=== PATIENT | male | born 1990 | race Caucasian/White ===

== ENCOUNTER 2023-11-25 22:04 | Emergency (ER) | payer SELFPAY ==
--- NOTE | 2023-11-25 22:00 | RT.EKG_ITS ---
APPROVED REPORT Exam: Resting ECG Reason for Exam: SOB Patient Location: E HR:90 bpm ECG Measurements Heart Rate 90 AXIS WV 127 P 22 QRSd 104 QRS 48 QT 357 T -7 QTc 438 Conclusion Sinus rhythm...normal P axis, V-rate 60- 99 Probable left atrial enlargement...P >50mS, <-0.10mV V1 no ST segment or T wave anbnormalities to suggest occlusive [place]
[2023-11-25 22:01] VITALS: BP 170/105; PULSE 93; RESP 18; TEMP 36.5; O2SAT 97
[2023-11-25 22:04] VITALS: RESP 18
[2023-11-25 22:16] LABS: Abs Immature Grans 0.04 10^3/uL (0.0-0.06); Absolute Basophil Count 0.03 10^3/uL (0.0-0.2); Absolute Eosinophil Count 0.07 10^3/uL (0.0-0.7); Absolute Lymphocyte Count 1.57 10^3/uL (1.2-3.4); Absolute Monocyte Count 0.61 10^3/uL (0.1-0.8); Absolute Neutrophil Count 3.78 10^3/uL (1.2-6.7); Basophils % 0.5; Eosinophils % 1.1; HCT 40.3 % (40.0-50.0); HGB 13.9 g/dL (13.5-17.5); Immature Grans % 0.7; Lymphocytes % 25.7; MCHC 34.5 % (32.0-36.0); MCV 90 fL (80-95); MPV 9.6 fL (8.0-11.0); Platelet Count 178 10^3/uL (130-400); RBC 4.48 10^6/uL (4.36-5.78); RDW 12.4 % (11.8-14.1); RDW-SD 41.1 fL
--- NOTE | 2023-11-25 22:30 | DI.RAD_ITS ---
Exam(s) XR CHEST 2V PA LATERAL EXAM: XR CHEST 2V PA LATERAL CLINICAL HISTORY: chest pain. TECHNIQUE: 2D digital imaging was performed. COMPARISON: No exams were available for comparison FINDINGS: 2 views: Heart size is normal. The mediastinum is not widened. Lungs are clear. No infiltrates nor pleural effusions. IMPRESSION: No acute pulmonary findings. DATA REPOSITORY: RADIATION DOSE DELIVERED:
[2023-11-25 22:41] LABS: ALT 122 U/L (16-63); AST 53 U/L (15-37); Albumin 3.9 g/dL (3.4-5.0); Alkaline Phosphatase 48 U/L (46-116); Anion Gap 8.6 mmol/L (3-11); BUN 9 mg/dL (7-18); Bilirubin, Total 0.4 mg/dL (0.2-1.0); CO2 26.4 mmol/L (21.0-32.0); CREATININE 0.9 mg/dL (0.70-1.30); Calcium 8.7 mg/dL (8.5-10.1); Chloride 100 mmol/L (98-107); Estimated GFR 115.65 (mL/min/1.73m2); Glucose 121 mg/dL (74-106); Magnesium 1.6 mg/dL (1.8-2.4); Potassium 3.8 mmol/L (3.5-5.1); Sodium 135 mmol/L (136-145); TSH 1.59 uIU/mL (0.36-3.74); Total Protein 7.6 g/dL (6.4-8.2); Troponin I < 50 ng/L (< or =60)
[2023-11-25 22:59] LABS: Bilirubin Negative (Negative); Blood Negative (Negative); Clarity Clear (Clear); Glucose Negative (Negative); Ketones Negative (Negative); Leukocyte Esterase Negative (Negative); Nitrite Negative (Negative); Urobilinogen 0.2 mg/dL (Up to 0.2); pH 5.5 (5-8)
--- NOTE | 2023-11-25 23:08 | W.ED.GENAD ---
HPI General Stated Complaint: Dizzy/Sync Mode of arrival: EMS. KHADAR: 3 Date/Time Provider Initiated Documentation: 11/25/23 22:10. Limitations to Documentation: no limitations. Information obtained by: patient and EMS. HPI Narrative: 33yo previously healthy male, hx heavy ETOH use, presenting for lightheadedness and weakness. Was siting playing video games when he began to feel lightheaded and like he might pass out, diffuse weakness seemed to be worse in his bilateral arms. Has never experienced similar symptoms before. No shortness of breath. Does have mild dull substernal nonradiating chest pain on and off for years, including currently, present over the past 6 hours which he attributes to reflux. Reports cold symptoms for the past week, cough, rhinorhea. No fevers, chills, rash, nausea, vomiting, diarrhea, or abdominal pain. Minimal PO intake today, a few vegetables and some sips of beer. DId drink a lot of beer yesterday and the day before. History of ETOH withdrawal shakes, no seizures/DT's/inpatient treatment. He is otherwise in his usual state of health. Related Data Home Medications Medication Instructions Recorded Confirmed Unknown [No Known Home Meds] 10/19/15 05/06/17 Allergies Allergy/AdvReac Type Severity Reaction Status Date / Time No Known Allergies Allergy Unverified 05/06/17 15:44 Review of Systems Narrative: see HPI PFSH All Active Problems (Updated 11/25/23 @ 23:49 by Stephanie Joseph MD) Lightheadedness (Acute) Social History Smoking/Tobacco Use Status: Current every day Smoking risk assessment performed?: Yes Alcohol Intake: current Alcohol Intake frequency: 3 or more drinks per day Drug use: Daily Substance use type: marijuana Do you feel safe at home: Yes Do you feel safe in your relationship?: Yes PAWSS Have you Been Recently Intoxicated or Drunk Within the Last 30 days?: Yes Have you Ever Experienced Previous Episodes of Alcohol Withdrawal?: Yes Have you ever Experienced Withdrawal Seizures?: No Have you ever Experienced Delirium Tremens(DT)s?: Yes Have you ever undergone Alcohol Rehabilitation Treatment (i.e, inpt ot outpatient treatment programs)?: No Have you ever Experienced Blackouts?: No Have you ever Combined Alcohol with other Downers within the last 90 days?: No Have you ever Combined Alcohol with any other Substance of Abuse during the last 90 days?: Yes Positive Blood Alcohol level on Presentation? [PCS.BAL]: Unable to Obtain Evidence of Increased Autonomic Activity (i.e. HR>120, tremor, sweating, agitation, nausea)?: No Result: 5 Exam Narrative Exam Narrative: General: Alert, well appearing, well nourished, in no acute distress. Head: Normocephalic, atraumatic Neck: Trachea midline, ?Neck supple. ENT: ?MMM.? Cardiac: ?RRR, no murmurs appreciated Resp: No respiratory distress. CTAB. Abd: ?Soft, non-distended, nontender : ?No suprapubic tenderness. No CVA tenderness. Extremities: ?No deformities.? No peripheral edema. Neuro: ? GCS 15.? PERRL.? EOMI.? Fluent speech, no dysarthria. Motor- 5/5 strength symmetric bilateral upper and lower extremities including shoulder abductors/adductors, elbow flexors/extensors, wrist flexors/extensors, finger abductors/adductors, hipflexors/extensors, knee flexors/extensors, ankle dorsiflexors and planter flexors. Sensation- ?Intact to light touch and symmetric multiple dermatomes including upper and lower extremities Coordination- No dysmetria on finger to nose Gait/station: ?Normal stance.? No truncal ataxia. Steady gait with equal normal steps CRANIAL NERVES: II: Pupils equal and reactive, III, IV, : EOM intact, no gaze preference or deviation, no nystagmus. V: normal sensation in V1, V2, and V3 segments bilaterally VII: no asymmetry, no nasolabial fold flattening VIII: normal hearing to speech IX, X: normal palatal elevation, no uvular deviation XI: 5/5 head turn and 5/5 shoulder shrug bilaterally XII: midline tongue protrusion Course Vital Signs Vital signs: Vital Signs Temperature 36.5 C 11/25/23 22:01 Pulse 93 H 11/25/23 22:01 Respiratory Rate 18 11/25/23 22:01 Blood Pressure 170/105 H 11/25/23 22:01 Pulse Oximetry 97 11/25/23 22:01 Temperature 36.5 C 11/25/23 22:01 Pulse 93 H 11/25/23 22:01 Respiratory Rate 18 11/25/23 22:04 Respiratory Effort Normal 11/25/23 22:04 Respiratory Depth Normal 11/25/23 22:04 Respiratory Pattern Normal 11/25/23 22:04 Blood Pressure 170/105 H 11/25/23 22:01 Blood Pressure Position Supine 11/25/23 22:01 Pulse Oximetry 97 11/25/23 22:01 Pain Level 1 11/25/23 22:01 Lab/Test Results Lab/Test Results: Laboratory Tests Range/Units 11/25/23 11/25/23 22:11 22:47 WBC (4.4-10.8) 10^3/uL 6.10 RBC (4.36-5.78) 10^6/uL 4.48 Hgb (13.5-17.5) g/dL 13.9 Hct (40.0-50.0) % 40.3 MCV (80-95) fL 90 MCH (27.0-33.0) pg 31.0 MCHC (32.0-36.0) % 34.5 RDW (11.8-14.1) % 12.4 Plt Count (130-400) 10^3/uL 178 MPV (8.0-11.0) fL 9.6 Immature Gran % 0.7 Neutrophils % 62.0 Lymphocytes % 25.7 Monocytes % 10.0 Eosinophils % 1.1 Basophils % 0.5 Nucleated RBC % (0.0-0.3) % 0.0 Absolute Neutrophils (1.2-6.7) 10^3/uL 3.78 Absolute Lymphocytes (1.2-3.4) 10^3/uL 1.57 Absolute Monocytes (0.1-0.8) 10^3/uL 0.61 Absolute Eosinophils (0.0-0.7) 10^3/uL 0.07 Absolute Basophils (0.0-0.2) 10^3/uL 0.03 Sodium (136-145) mmol/L 135 L Potassium (3.5-5.1) mmol/L 3.8 Chloride (98-107) mmol/L 100 Carbon Dioxide (21.0-32.0) mmol/L 26.4 Anion Gap (3-11) mmol/L 8.6 BUN (7-18) mg/dL 9 Creatinine (0.70-1.30) mg/dL 0.9 Est GFR (CKD-EPI 2021) (mL/min/1.73m2) 115.65 Glucose (74-106) mg/dL 121 H Calcium (8.5-10.1) mg/dL 8.7 Magnesium (1.8-2.4) mg/dL 1.6 L Total Bilirubin (0.2-1.0) mg/dL 0.4 AST (15-37) U/L 53 H ALT (16-63) U/L 122 H Alkaline Phosphatase (46-116) U/L 48 Troponin I (< or =60) ng/L < 50 Total Protein (6.4-8.2) g/dL 7.6 Albumin (3.4-5.0) g/dL 3.9 TSH (0.36-3.74) uIU/mL 1.59 Urine Color (Yellow) Yellow Urine Clarity (Clear) Clear Urine pH (5-8) 5.5 Ur Specific [place] (1.005-1.025) 1.020 Urine Protein (Negative) mg/dL Negative Urine Ketones (Negative) mg/dL Negative Urine Blood (Negative) Negative Urine Nitrite (Negative) Negative Urine Bilirubin (Negative) Negative Urine Urobilinogen (Up to 0.2) mg/dL 0.2 Ur Leukocyte Esterase (Negative) Negative Urine Glucose (Negative) mg/dL Negative Medical Decision Making 33yo previously healthy male, hx heavy ETOH use, presenting for lightheadedness and weakness. History from patient and EMS. Was siting playing video games when he began to feel lightheaded and like he might pass out, diffuse weakness seemed to be worse in his bilateral arms. No SOB; does have mild dull substernal nonradiating chest pain on and off for years, including currently, present over the past 6 hours which he attributes to reflux. Minimal PO intake today, a few vegetables and some sips of beer. Did drink a lot of beer yesterday and the day before. Hypertensive on arrival, vital signs otherwise reassuring. Normal physical and neurological exam. Symptoms are not vertiginous. Would not pursue CVA with CT imaging. Not consitent with neuromusclar disease. Not septic. Low supscion for acute cardiac event; will eval with EKG, CXR, labs. EKG NSR, appropriate intervals, no ST segment or T wave abnormalities to suggest occlusive [place]. CXR independently reviewed; no focal pneumonia or pneumonia on my view; agree with radiology read below. Labs reviewed as below, CBC reassuring, CMP with mildlely elevated ALP and AST, no significant electrolyte abnormalities, TSH normal, troponin normal in the setting of 6 hours of constant atypical chest pain; would not further pursue ACS. UA not infected. Reassuring orthostatic vital signs. CIWA 2. Ambulates steadily in the department. Unclear etiology of symptoms however with reassuring workup here appropriate for PCP followup. Advised to followup closely with his primary care doctor. Discharged home; discharge instructions and return precautions were reviewed with patient who verbalized understanding. All questions were answered and he s in full agreement with the plan. Imaging Data Radiologic Study: Imaging: X-Ray Radiologist's impression: IMPRESSION: No acute thoracic process. Lab Data Lab results reviewed: Yes I reviewed the patient's lab results. Labs: Laboratory Tests Range/Units 11/25/23 11/25/23 22:11 22:47 WBC (4.4-10.8) 10^3/uL 6.10 RBC (4.36-5.78) 10^6/uL 4.48 Hgb (13.5-17.5) g/dL 13.9 Hct (40.0-50.0) % 40.3 MCV (80-95) fL 90 MCH (27.0-33.0) pg 31.0 MCHC (32.0-36.0) % 34.5 RDW (11.8-14.1) % 12.4 Plt Count (130-400) 10^3/uL 178 MPV (8.0-11.0) fL 9.6 Immature Gran % 0.7 Neutrophils % 62.0 Lymphocytes % 25.7 Monocytes % 10.0 Eosinophils % 1.1 Basophils % 0.5 Nucleated RBC % (0.0-0.3) % 0.0 Absolute Neutrophils (1.2-6.7) 10^3/uL 3.78 Absolute Lymphocytes (1.2-3.4) 10^3/uL 1.57 Absolute Monocytes (0.1-0.8) 10^3/uL 0.61 Absolute Eosinophils (0.0-0.7) 10^3/uL 0.07 Absolute Basophils (0.0-0.2) 10^3/uL 0.03 Sodium (136-145) mmol/L 135 L Potassium (3.5-5.1) mmol/L 3.8 Chloride (98-107) mmol/L 100 Carbon Dioxide (21.0-32.0) mmol/L 26.4 Anion Gap (3-11) mmol/L 8.6 BUN (7-18) mg/dL 9 Creatinine (0.70-1.30) mg/dL 0.9 Est GFR (CKD-EPI 2020) (mL/min/1.73m2) 115.65 Glucose (74-106) mg/dL 121 H Calcium (8.5-10.1) mg/dL 8.7 Magnesium (1.8-2.4) mg/dL 1.6 L Total Bilirubin (0.2-1.0) mg/dL 0.4 AST (15-37) U/L 53 H ALT (16-63) U/L 122 H Alkaline Phosphatase (46-116) U/L 48 Troponin I (< or =60) ng/L < 50 Total Protein (6.4-8.2) g/dL 7.6 Albumin (3.4-5.0) g/dL 3.9 TSH (0.36-3.74) uIU/mL 1.59 Urine Color (Yellow) Yellow Urine Clarity (Clear) Clear Urine pH (5-8) 5.5 Ur Specific [place] (1.005-1.025) 1.020 Urine Protein (Negative) mg/dL Negative Urine Ketones (Negative) mg/dL Negative Urine Blood (Negative) Negative Urine Nitrite (Negative) Negative Urine Bilirubin (Negative) Negative Urine Urobilinogen (Up to 0.2) mg/dL 0.2 Ur Leukocyte Esterase (Negative) Negative Urine Glucose (Negative) mg/dL Negative Quality:SDOH Health Related Social Needs: No Data to Display Discharge Plan Disposition Patient Disposition: Home Condition: Good Discharge Details Clinical Impression: Lightheadedness Primary Care Provider: None,None ED Provider: Stephanie Joseph Home Meds and New Rx's Prescriptions: No Action No Known Home Meds Discharge Instructions Instructions: Lightheadedness (ED) Additional Instructions: Drink plenty fluids and make sure you eat something when you get home. Call your primary care doctor today to schedule an appointment within the next 48 hours to followup on your visit here. Return to the emergency department for new or worsening symptoms including new/different/worse chest pain, difficulty breathing, numbness or weakness in part of your body, or if you have any other concerns.
[2023-11-25] MEDS: Normal Saline 1,000 ML 1000 ML IV (23:14)
[2023-11-25 23:17] VITALS: BP 146/89; BP 150/101; BP 150/99; PULSE 83; PULSE 86; PULSE 88
--- NOTE | 2023-11-25 23:35 | DI.VRAD_ITS ---
PROCEDURE INFORMATION: Exam: XR Chest Exam date and time: 11/25/2023 11:02 PM Age: 33 years old Clinical indication: Chest wall pain TECHNIQUE: Imaging protocol: Radiologic exam of the chest. Views: 2 views. COMPARISON: No relevant prior studies available. FINDINGS: Lungs: Normal pulmonary expansion. Pulmonary vasculature grossly normal. No gross pulmonary infiltrates or edema pattern. Pleural spaces: No pleural effusion. No pneumothorax. Heart/Mediastinum: Heart size normal. No tracheal/mediastinal shift. Bones/joints: No acute osseous abnormalities are identified. IMPRESSION: No acute thoracic process. Dictated and Authenticated by: Nando Nair MD. Ordering:DAYRON Brown MD
[2023-11-26 00:04] VITALS: BP 147/97; PULSE 89; RESP 18; O2SAT 97
--- NOTE | 2023-11-26 00:06 | NUR.NOTE ---
PT ambulated in hallway PT states that he is still having dizziness. Nursing Note:
--- NOTE | 2023-11-26 03:33 | NUR.NOTE ---
Pt placed on care management list for referral to PCP to set up primary care due to pt not having PCP. Pt has not provided any telephone number to be reached
== END 2023-11-26 00:41 | disposition home or self-care (01) ==
PROVIDERS: Emergency Provider Student in an Organized Health Care Education/Training Program
DX: R42 Dizziness and giddiness (principal); R53.1 Weakness; F17.210 Nicotine dependence, cigarettes, uncomplicated
CPT/HCPCS: 80053; 93005; 96360; 99283; 71046; 81003; 83735; 84443; 84484; 85025; 93010

== ENCOUNTER 2023-12-01 01:23 | Emergency (ER) | payer SELFPAY ==
[2023-12-01] VITALS (11 sets, daily range): BP systolic 143–161; BP diastolic 96–107; PULSE 66–80; RESP 11–18; TEMP 36.6; O2SAT 96–98
--- NOTE | 2023-12-01 01:15 | RT.EKG_ITS ---
APPROVED REPORT Exam: Resting ECG Reason for Exam: chest pain Patient Location: E HR:70 bpm ECG Measurements Heart Rate [address] 132 P 24 QRSd 105 QRS 59 QT 376 T 11 QTc 406 Conclusion Sinus rhythm...normal P axis, V-rate 60- 99 Physician: no stemi, unchanged from prior ekg.intervals normal. no epsilon or delta wave.
--- NOTE | 2023-12-01 01:30 | DI.CT_ITS ---
Exam(s) CT THORAX CTA EXAM: CT THORAX CTA CLINICAL HISTORY: chest and left arm pain, r/o dissection. TECHNIQUE: Imaging Protocol: CT angiography of the chest was performed using pulmonary embolus marlene col. Multi planar reconstructions were performed. CONTRAST MATERIAL: Intravenous: Omnipaque 350 Contrast volume: 100 cc COMPARISON: CT CT BRAIN NECK CTA from 12/01/2023 FINDINGS: CHEST: PULMONARY ARTERIES: There are no intraluminal filling defects to suggest acute pulmonary emboli. LUNGS: There are no infiltrates nor evidence of pulmonary infarction.. There are no pleural effusions . MEDIASTINUM: There is no hilar nor mediastinal adenopathy. Visualized thyroid unremarkable. CARDIAC: Heart size is upper normal. There is no pericardial effusion.Caliber of the thoracic aorta is within normal limits. There is no evidence of dissection. There is no significant shift of the in terventricular septum. PARTIALLY VISUALIZED UPPERMOST ABDOMEN: Hepatic steatosis. No splenomegaly. No adrenal masses. Ovi al arteries unremarkable. OSSEOUS: No significant osseous lesions.No fractures.. IMPRESSION: 1. No evidence of acute pulmonary emboli. No evidence of pulmonary infarction.No pleural effusions. No evidence of right heart strain. 2. No evidence of aortic dissection nor pericardial effusion 3. No acute pulmonary findings. RADIATION DOSE DELIVERED: 560.98mGy.cm Total DLP DATA REPOSITORY: All CT scans at this facility are submitted to the National Radiology Data Registry (NRDR) Dose Index Registry (DIR) with the [employer] (A[employer]). RADIATION OPTIMIZATION: All CT scans at this facility use at least one of these dose optimization te chniques: automated exposure control; mA and/or kV adjustment per patient size (includes targeted exa ms where dose is matched to clinical indication); or iterative reconstruction.
--- NOTE | 2023-12-01 01:30 | DI.CT_ITS ---
Exam(s) CT BRAIN NECK CTA EXAM: CT BRAIN NECK CTA CLINICAL HISTORY: headache, lightheaded, cocaine use. TECHNIQUE: Imaging Protocol: Axial CT angiography was performed with multi-slice acquisition and mu lti-planar and/or 3D reconstructions. CONTRAST MATERIAL: Intravenous: Omnipaque 350 Contrast volume:structured data in ml COMPARISON: No exams were available for comparison FINDINGS: CTA Neck W: Aortic arch anatomy: The aortic arch anatomy is conventional and there is no significant stenosis at the origin of the great vessels off of the aortic arch. No intimal flap evident. Anterior circulation: Both common carotid arteries ascend with normal luminal diameters. At the level the carotid bulbs and proximal internal carotid arteries there is no significant plaque and no significant stenosis evident. Internal carotid arteries are demonstrated to be patent in the upper neck. Posterior circulation: Both vertebral arteries originate in conventional fashion off of the subclavian arteries and there is no obvious stenosis at the origin of the vertebral arteries. Both vertebral arteries exhibit normal luminal diameters within the foramen transversarium. The left vertebral artery is dominant. Both vertebral arteries contribute to the formation of the basilar artery at the skull base. CTA Brain W: Anterior circulation: Both internal carotid arteries are patent in the skull base-carotid canals as well as within the cave rnous sinuses. The supraclinoid aspects of the ICAs are patent. Both A1 segments are patent as are the anterior cer ebral arteries and there is no evidence of aneurysm at the level of the anterior communicating artery . Both middle cerebral arteries are patent with no evidence of significant stenosis nor intraluminal th rombus. There also no aneurysms of these vessels. Posterior circulation: The basilar artery ascends in the midline. Distally it gives off patent bilateral superior cerebella r arteries. Above this level the basilar artery terminates as patent bilateral posterior cerebral arteries. There is no evidence of aneurysm at the tip of the basilar artery nor elsewhere in the [id number] is. CT BRAIN: There is no evidence of intracranial hemorrhage, mass effect, or shift of midline structures. There are no extra-axial fluid collections. Ventricles are not enlarged or shifted. There are no ring enh ancing lesions in the brain and no abnormal meningeal enhancement. IMPRESSION: 1. Patent carotid arteries in the neck. No hemodynamically significant stenosis. 2. Patent vertebral arteries. 3. Patent intracranial arteries. 4. No evidence of intracranial hemorrhage. RADIATION DOSE DELIVERED: 1,954.18mGy.cm Total DLP DATA REPOSITORY: All CT scans at this facility are submitted to the National Radiology Data Registry (NRDR) Dose Index Registry (DIR) with the [employer] (ACR). RADIATION OPTIMIZATION: All CT scans at this facility use at least one of these dose optimization te chniques: automated exposure control; mA and/or kV adjustment per patient size (includes targeted exa ms where dose is matched to clinical indication); or iterative reconstruction.
[2023-12-01] MEDS: Normal Saline 1,000 ML 1000 ML IV (01:48)
[2023-12-01 01:53] LABS: Abs Immature Grans 0.04 10^3/uL (0.0-0.06); Absolute Basophil Count 0.04 10^3/uL (0.0-0.2); Absolute Eosinophil Count 0.12 10^3/uL (0.0-0.7); Absolute Lymphocyte Count 3.17 10^3/uL (1.2-3.4); Absolute Monocyte Count 0.89 10^3/uL (0.1-0.8); Absolute Neutrophil Count 6.83 10^3/uL (1.2-6.7); Basophils % 0.4; Eosinophils % 1.1; HCT 41.7 % (40.0-50.0); HGB 14.5 g/dL (13.5-17.5); Immature Grans % 0.4; Lymphocytes % 28.6; MCH 30.6 pg (27.0-33.0); MCHC 34.8 % (32.0-36.0); MCV 88 fL (80-95); MPV 10.4 fL (8.0-11.0); Neutrophils % 61.5; Platelet Count 271 10^3/uL (130-400); RBC 4.74 10^6/uL (4.36-5.78); RDW 11.9 % (11.8-14.1); RDW-SD 38.4 fL
[2023-12-01] MEDS: Omnipaque 350 MG/ML 100 ML BTL IJ ×2 (02:05→02:06)
[2023-12-01 02:06] LABS: PTT Activated 26.4 sec (23.6-32.8)
[2023-12-01] MEDS: Normal Saline Flush 10 ML SYR IVP (02:06)
[2023-12-01] MEDS: Normal Saline - Diluent 50 ML VIAL IJ ×2 (02:06→02:07)
[2023-12-01 02:15] LABS: NT-proBNP 65 pg/mL (<300)
[2023-12-01 02:18] LABS: ALT 152 U/L (16-63); AST 67 U/L (15-37); Albumin 4.1 g/dL (3.4-5.0); Alkaline Phosphatase 50 U/L (46-116); Anion Gap 9.9 mmol/L (3-11); BUN 13 mg/dL (7-18); Bilirubin, Total 0.5 mg/dL (0.2-1.0); CO2 27.1 mmol/L (21.0-32.0); Calcium 9.1 mg/dL (8.5-10.1); Chloride 100 mmol/L (98-107); Estimated GFR 101.92 (mL/min/1.73m2); Glucose 100 mg/dL (74-106); Potassium 3.6 mmol/L (3.5-5.1); Sodium 137 mmol/L (136-145); TSH (W/Ref FT4) 2.23 uIU/mL (0.36-3.74); Total Protein 7.8 g/dL (6.4-8.2); Troponin I < 50 ng/L (< or =60)
[2023-12-01 02:19] LABS: ETHANOL BLOOD < 3.0 mg/dL (<10)
--- NOTE | 2023-12-01 02:58 | ED.GENADUL_ITS ---
HPI General Stated Complaint: Dizzy/Sync KHADAR: 4 Date/Time Provider Initiated Documentation: 12/01/23 01:23. HPI Narrative: 33-year-old male with a past medical history of anxiety presents today for evaluation of lightheadedness chest pain, dizziness, and arm numbness and tingling. Patient was here 5 days ago, at that time he had similar symptoms that occurred while playing video games late at night. Chest x-ray was unremarkable. Workup was benign. No signs of significant abnormality. Symptoms resolved, however again tonight while the patient was playing [employer] on PC he again developed a return of his symptoms. He admits to lightheadedness, left arm tingling and mild dizziness and mild chest pressure for the last 2 to 3 hours. Patient does regularly drink alcohol, but denies any alcohol today. Patient did utilize cocaine a few days ago, but not tonight. No other complaints at this time. He denies any family history of sudden , cardiac disease or other significant pertinent family history. Related Data Home Medications Medication Instructions Recorded Confirmed Unknown [No Known Home Meds] 10/19/15 05/06/17 Allergies Allergy/AdvReac Type Severity Reaction Status Date / Time No Known Allergies Allergy Unverified 05/06/17 15:44 Review of Systems All systems reviewed & are unremarkable except as noted in HPI and below PFSH All Active Problems (Updated 12/01/23 @ 03:44 by Jeremiah Xie DO) Chest discomfort (Acute) Tingling of left upper extremity (Acute) Lightheadedness (Acute) Social History Smoking/Tobacco Use Status: Current every day Tobacco Type: cigarettes Smoking risk assessment performed?: Yes Alcohol Intake: current Alcohol Intake frequency: 3 or more drinks per day Drug use: Daily Substance use type: marijuana and crack/cocaine Housing: house Do you feel safe at home: Yes Do you feel safe in your relationship?: Yes PAWSS Have you Been Recently Intoxicated or Drunk Within the Last 30 days?: Yes Have you Ever Experienced Previous Episodes of Alcohol Withdrawal?: Yes Have you ever Experienced Withdrawal Seizures?: No Have you ever Experienced Delirium Tremens(DT)s?: Yes Have you ever undergone Alcohol Rehabilitation Treatment (i.e, inpt ot outpatient treatment programs)?: No Have you ever Experienced Blackouts?: Yes Have you ever Combined Alcohol with other Downers within the last 90 days?: No Have you ever Combined Alcohol with any other Substance of Abuse during the last 90 days?: Yes Evidence of Increased Autonomic Activity (i.e. HR>120, tremor, sweating, agitation, nausea)?: No Result: 6 Exam Narrative Exam Narrative: 1.Const: Well-nourished, Well-developed, appearing stated age 2.Eyes: PERRL, no conjunctival injection, and symmetrical lids. 3.ENT: Atraumatic external nose and ears. Moist MM. Neck: Symmetric, trachea midline, No thyromegaly. 4.CVS: +S1/S2, No murmurs or gallops. Peripheral pulses 2+ and equal in all extremities. Brisk capillary refill in all extremities. 5.RESP: Unlabored respiratory effort. Clear to auscultation bilaterally. No wheezes rales or rhonchi 6.GI: Soft, Nontender/Nondistended, No hepatosplenomegaly. No guarding or rebound. 7.MSK: Normocephalic/Atraumatic, Extremities w/o deformity or ttp No cyanosis or clubbing, Normal movement of all extremities 8.Skin: Warm, Dry. No rashes or lesions. 9.Neuro: entertainment dancer II-XII grossly intact. Sensation grossly intact, no focal neurologic deficits. All 6 cardinal planes of vision are fully intact. No evidence of rotatory or vertical nystagmus. The patient demonstrated a normal lowptp-bekz-qzaphu, good dexterity. There was no evidence of dysdiadochokinesia. Patient was able to ambulate without difficulty. There was no wide-based gait. Romberg testing was normal. Qjbr-cd-vskm testing was normal. Sensation was intact bilaterally as well as muscle strength bilaterally for all extremities. Patient was able to verbalize butter cup with no slurring, or miss pronunciation. 10.Psych: (AAO) x3. Appropriate mood and affect Course Vital Signs Vital signs: Vital Signs Temperature 36.6 C 12/01/23 01:26 Pulse 80 12/01/23 01:26 Respiratory Rate 18 12/01/23 01:26 Blood Pressure 156/107 H 12/01/23 01:26 Pulse Oximetry 98 12/01/23 01:26 Temperature 36.6 C 12/01/23 01:26 Pulse 73 12/01/23 01:40 Pulse 79 12/01/23 02:10 Respiratory Rate 14 12/01/23 02:00 Respiratory Effort Normal, Non-Labored 12/01/23 01:30 Respiratory Depth Normal 12/01/23 01:30 Respiratory Pattern Normal 12/01/23 01:30 Blood Pressure 161/103 H 12/01/23 01:40 Blood Pressure Mean 122 12/01/23 01:40 Pulse Oximetry 98 12/01/23 02:00 Oxygen Delivery Method Room Air 12/01/23 01:26 Oxygen Flow Rate 0 12/01/23 01:26 Pain Level 4 12/01/23 01:26 Lab/Test Results Lab/Test Results: Laboratory Tests Range/Units 12/01/23 01:45 WBC (4.4-10.8) 10^3/uL 11.10 H RBC (4.36-5.78) 10^6/uL 4.74 Hgb (13.5-17.5) g/dL 14.5 Hct (40.0-50.0) % 41.7 MCV (80-95) fL 88 MCH (27.0-33.0) pg 30.6 MCHC (32.0-36.0) % 34.8 RDW (11.8-14.1) % 11.9 Plt Count (130-400) 10^3/uL 271 MPV (8.0-11.0) fL 10.4 Immature Gran % 0.4 Neutrophils % 61.5 Lymphocytes % 28.6 Monocytes % 8.0 Eosinophils % 1.1 Basophils % 0.4 Nucleated RBC % (0.0-0.3) % 0.0 Absolute Neutrophils (1.2-6.7) 10^3/uL 6.83 H Absolute Lymphocytes (1.2-3.4) 10^3/uL 3.17 Absolute Monocytes (0.1-0.8) 10^3/uL 0.89 H Absolute Eosinophils (0.0-0.7) 10^3/uL 0.12 Absolute Basophils (0.0-0.2) 10^3/uL 0.04 PT (9.1-11.1) sec 10.0 INR (0.9-1.1) 1.0 APTT (23.6-32.8) sec 26.4 Sodium (136-145) mmol/L 137 Potassium (3.5-5.1) mmol/L 3.6 Chloride (98-107) mmol/L 100 Carbon Dioxide (21.0-32.0) mmol/L 27.1 Anion Gap (3-11) mmol/L 9.9 BUN (7-18) mg/dL 13 Creatinine (0.70-1.30) mg/dL 1.0 Est GFR (CKD-EPI 2020) (mL/min/1.73m2) 101.92 Glucose (74-106) mg/dL 100 Calcium (8.5-10.1) mg/dL 9.1 Total Bilirubin (0.2-1.0) mg/dL 0.5 AST (15-37) U/L 67 H ALT (16-63) U/L 152 H Alkaline Phosphatase (46-116) U/L 50 Troponin I (< or =60) ng/L < 50 NT-Pro-B Natriuret Pep (<300) pg/mL 65 Total Protein (6.4-8.2) g/dL 7.8 Albumin (3.4-5.0) g/dL 4.1 TSH (0.36-3.74) uIU/mL 2.23 Ethyl Alcohol (<10) mg/dL < 3.0 Medical Decision Making 33-year-old male with a past medical history of anxiety presents today for evaluation of lightheadedness chest pain, dizziness, and arm numbness and tingling. Patient was here 5 days ago, at that time he had similar symptoms that occurred while playing video games late at night. Chest x-ray was unremarkable. Workup was benign. No signs of significant abnormality. Symptoms resolved, however again tonight while the patient was playing [employer] on PC he again developed a return of his symptoms. He admits to lightheadedness, left arm tingling and mild dizziness and mild chest pressure for the last 2 to 3 hours. Patient does regularly drink alcohol, but denies any alcohol today. Patient did utilize cocaine a few days ago, but not tonight. No other complaints at this time. He denies any family history of sudden , cardiac disease or other significant pertinent family history. Exam demonstrates well-appearing male, vital signs stable, no significant tachycardia, tachypnea, or other abnormalities aside from mild blood pressure elevation. No neurologic deficits. Differential includes dehydration, dysrhythmia, however dissection or aneurysm is of concern especially secondary to the patient's cocaine use. Anxiety may certainly be a component of his symptoms which the patient feels is the case, however I feel that this is a diagnosis of exclusion. Previous workup demonstrated a benign chest x-ray and EKG, I do feel that further evaluation is indicated at this time with his return of his symptoms and additional factors. Will get a scan of his chest head and neck, rehydrate, monitor closely and reassess. 3:45 AM CTA of the head neck and chest is negative for acute process. Patient feels much better at this time. Laboratory workup benign. proBNP normal suggesting no strain, troponin normal, thyroid function testing normal. Patient does have mild transaminitis, in the past he has worked with seafood, he denies IV drug use. Will send a hepatitis panel. At this time there is no evidence of significant abnormality. His workup and exam are clinically inconsistent with dissection, PE, tumor, ACS, aneurysm or stroke. Patient stable for discharge. Suspect potential anxiety, dehydration, or other nonemergent etiology. Will place referral for new primary care provider for the patient. I have extensively reviewed the treatment plan and discharge instructions with the patient. I have addressed all patient concerns at this time. The patient was made aware of what symptoms to monitor for that would warrant a return to the emergency department. Discussed the plan with the patient, they demonstrate verbal understanding and agreement with our assessment and plan at this time. The documentation in this chart was dictated using [employer] dictation software. Please excuse any dictation errors. FINDINGS: ANTERIOR CIRCULATION: Right internal carotid artery: Intracranial segment is patent with no significant stenosis. No aneurysm. Right middle cerebral artery: No occlusion or significant stenosis. No aneurysm. Right anterior cerebral artery: No occlusion or significant stenosis. No aneurysm. Left internal carotid artery: Intracranial segment is patent with no significant stenosis. No aneurysm. Left middle cerebral artery: No occlusion or significant stenosis. No aneurysm. Left anterior cerebral artery: No occlusion or significant stenosis. No aneurysm. POSTERIOR CIRCULATION: Right vertebral artery: No occlusion or significant stenosis. No aneurysm. Left vertebral artery: No occlusion or significant stenosis. No aneurysm. Basilar artery: No occlusion or significant stenosis. No aneurysm. Right posterior cerebral artery: No occlusion or significant stenosis. No aneurysm. Left posterior cerebral artery: No occlusion or significant stenosis. No aneurysm. Brain: No definite mass, mass effect, or midline shift. Cerebral ventricles: No ventriculomegaly. Bones/joints: Unremarkable. No acute fracture. Soft tissues: Unremarkable. IMPRESSION: No large vessel stenosis or occlusion. FINDINGS: Right common carotid artery: No stenosis. No dissection or occlusion. Right internal carotid artery: No stenosis of the extracranial segment. No dissection or occlusion. Right external carotid artery: No occlusion or stenosis of the origin. Left common carotid artery: No stenosis. No dissection or occlusion. Left internal carotid artery: No stenosis of the extracranial segment. No dissection or occlusion. Left external carotid artery: No occlusion or stenosis of the origin. Right vertebral artery: No stenosis. No dissection or occlusion. Left vertebral artery: No stenosis. No dissection or occlusion. Soft tissues: Normal. No significant soft tissue swelling. Bones/joints: No acute fracture. IMPRESSION: No stenosis or occlusion. REFERENCES: NASCET CRITERIA. The degree of stenosis in the cervical segment of the internal carotid artery is based on NASCET criteria. Normal is no stenosis. Mild is less than 50% stenosis. Moderate is 50- 69% stenosis. Severe is 70% to 99% stenosis. Total occlusion is no detectable patent lumen. Thank you for allowing us to participate in the care of your patient. Dictated and Authenticated by: Adrian Coker MD 12/01/2023 3:18 AM Eastern Time ([place] & [place]) FINDINGS: Pulmonary arteries: No evidence of pulmonary embolism. Aorta: Normal thoracic aorta without aneurysm or dissection. Lungs: No airspace consolidation or ground-glass opacities. Pleural spaces: No pleural effusion or pneumothorax. Heart: Unremarkable. No cardiomegaly. No pericardial effusion. Lymph nodes: Unremarkable. No enlarged lymph nodes. Bones/joints: No acute fracture. Soft tissues: Unremarkable. IMPRESSION: No acute findings. Thank you for allowing us to participate in the care of your patient. Dictated and Authenticated by: Cipriano Heart MD 12/01/2023 3:25 AM Eastern Time ([place] & [place]) Quality:SDOH Health Related Social Needs: Health related social needs risk of homeless Discharge Plan Disposition Patient Disposition: Home Discharge Details Chief Complaint: Dizzy/Sync Clinical Impression: Tingling of left upper extremity, Chest discomfort Primary Care Provider: None,None ED Provider: [place],Jeremiah R Home Meds and New Rx's Prescriptions: No Action No Known Home Meds Discharge Instructions Instructions: Chest Pain (ED) Additional Instructions: At this time your workup has returned very normal and reassuring. There is no signs of blood clot, notable vascular problems for your major vessels, aneurysms, strokes, bleeds, heart attack, tumors, or other significant abnormalities. Your laboratory workup did show an elevated liver function testing. We have sent a hepatitis panel, and you will be contacted if these are positive. Please follow-up if you have not heard back from us in the next week. We will place a referral for a new primary care provider for you. If you notice any worsening of your symptoms, or any new symptoms such as vomiting, diarrhea, fever, chills, shortness of breath, chest pain, numbness, weakness, or fainting , please return immediately to the emergency department for reevaluation. Please follow up with your primary care provider as soon as possible for reassessment and reevaluation. As always, it was a pleasure participating in your medical care today.
--- NOTE | 2023-12-01 03:18 | DI.VRAD_ITS ---
PROCEDURE INFORMATION: Exam: CTA Head With Contrast, Arteriography Exam date and time: 12/01/2023 2:09 AM Age: 33 years old Clinical indication: Dizziness and giddiness and other: L arm tingling; Patient HX: Headache, lightheaded, cocaine use TECHNIQUE: Imaging protocol: Computed tomographic angiography of the head with contrast. Exam focused on the arteries. 3D rendering (Not supervised by radiologist): MIP and/or 3D reconstructed images were created by the technologist. Radiation optimization: All CT scans at this facility use at least one of these dose optimization techniques: automated exposure control; mA and/or kV adjustment per patient size (includes targeted exams where dose is matched to clinical indication); or iterative reconstruction. Contrast material: OMNIPAQUE 350; Contrast volume: 85 ml; Contrast route: INTRAVENOUS (IV); COMPARISON: No relevant prior studies available. FINDINGS: ANTERIOR CIRCULATION: Right internal carotid artery: Intracranial segment is patent with no significant stenosis. No aneurysm. Right middle cerebral artery: No occlusion or significant stenosis. No aneurysm. Right anterior cerebral artery: No occlusion or significant stenosis. No aneurysm. Left internal carotid artery: Intracranial segment is patent with no significant stenosis. No aneurysm. Left middle cerebral artery: No occlusion or significant stenosis. No aneurysm. Left anterior cerebral artery: No occlusion or significant stenosis. No aneurysm. POSTERIOR CIRCULATION: Right vertebral artery: No occlusion or significant stenosis. No aneurysm. Left vertebral artery: No occlusion or significant stenosis. No aneurysm. Basilar artery: No occlusion or significant stenosis. No aneurysm. Right posterior cerebral artery: No occlusion or significant stenosis. No aneurysm. Left posterior cerebral artery: No occlusion or significant stenosis. No aneurysm. Brain: No definite mass, mass effect, or midline shift. Cerebral ventricles: No ventriculomegaly. Bones/joints: Unremarkable. No acute fracture. Soft tissues: Unremarkable. IMPRESSION: No large vessel stenosis or occlusion. PROCEDURE INFORMATION: Exam: CTA Neck With Contrast Exam date and time: 12/01/2023 2:09 AM Age: 33 years old Clinical indication: Dizziness and giddiness and other: L arm tingling; Patient HX: Headache, lightheaded, cocaine use TECHNIQUE: Imaging protocol: Computed tomographic angiography of the neck with contrast. Exam focused on the cervical segments of the vasculature. 3D rendering (Not supervised by radiologist): MIP and/or 3D reconstructed images were created by the technologist. Radiation optimization: All CT scans at this facility use at least one of these dose optimization techniques: automated exposure control; mA and/or kV adjustment per patient size (includes targeted exams where dose is matched to clinical indication); or iterative reconstruction. Contrast material: OMNIPAQUE 350; Contrast volume: 85 ml; Contrast route: INTRAVENOUS (IV); COMPARISON: CR XR CHEST 2V PA LATERAL 11/25/2023 11:02 PM FINDINGS: Right common carotid artery: No stenosis. No dissection or occlusion. Right internal carotid artery: No stenosis of the extracranial segment. No dissection or occlusion. Right external carotid artery: No occlusion or stenosis of the origin. Left common carotid artery: No stenosis. No dissection or occlusion. Left internal carotid artery: No stenosis of the extracranial segment. No dissection or occlusion. Left external carotid artery: No occlusion or stenosis of the origin. Right vertebral artery: No stenosis. No dissection or occlusion. Left vertebral artery: No stenosis. No dissection or occlusion. Soft tissues: Normal. No significant soft tissue swelling. Bones/joints: No acute fracture. IMPRESSION: No stenosis or occlusion. REFERENCES: NASCET CRITERIA. The degree of stenosis in the cervical segment of the internal carotid artery is based on NASCET criteria. Normal is no stenosis. Mild is less than 50% stenosis. Moderate is 50-69% stenosis. Severe is 70% to 99% stenosis. Total occlusion is no detectable patent lumen. Dictated and Authenticated by: Adrian Coker MD. Ordering:BRANDON Daniels MD
--- NOTE | 2023-12-01 03:26 | DI.VRAD_ITS ---
PROCEDURE INFORMATION: Exam: CTA Chest With Contrast Exam date and time: 12/01/2023 2:37 AM Age: 33 years old Clinical indication: Left-sided; Patient HX: Chest pain and L arm pain, R/O dissection TECHNIQUE: Imaging protocol: Computed tomographic angiography of the chest with contrast. Exam focused on the arteries. 3D rendering (Not supervised by radiologist): MIP and/or 3D reconstructed images were created by the technologist. Radiation optimization: All CT scans at this facility use at least one of these dose optimization techniques: automated exposure control; mA and/or kV adjustment per patient size (includes targeted exams where dose is matched to clinical indication); or iterative reconstruction. Contrast material: OMNIPAQUE 350; Contrast volume: 100 ml; Contrast route: INTRAVENOUS (IV); COMPARISON: CR XR CHEST 2V PA LATERAL 11/25/2023 11:02 PM FINDINGS: Pulmonary arteries: No evidence of pulmonary embolism. Aorta: Normal thoracic aorta without aneurysm or dissection. Lungs: No airspace consolidation or ground-glass opacities. Pleural spaces: No pleural effusion or pneumothorax. Heart: Unremarkable. No cardiomegaly. No pericardial effusion. Lymph nodes: Unremarkable. No enlarged lymph nodes. Bones/joints: No acute fracture. Soft tissues: Unremarkable. IMPRESSION: No acute findings. Dictated and Authenticated by: Cipriano Heart MD. Ordering:BRANDON Daniels MD
--- NOTE | 2023-12-01 04:27 | NUR.NOTE ---
Pt placed on care management list to establish primary care but has no phone number provided.
[2023-12-01 20:16] LABS: Hepatitis A Antibody IgM Negative (Negative); Hepatitis B Core Antibody Negative (Negative); Hepatitis B surface Ag Negative (Negative); Hepatitis C Ab w Rflx HCV PCR Negative (Negative)
== END 2023-12-01 03:50 | disposition home or self-care (01) ==
PROVIDERS: Emergency Provider Student in an Organized Health Care Education/Training Program
DX: R20.2 Paresthesia of skin (principal); R53.1 Weakness; R42 Dizziness and giddiness; F41.9 Anxiety disorder, unspecified; F17.210 Nicotine dependence, cigarettes, uncomplicated
CPT/HCPCS: 36415; 70496; 70498; 71275; 80053; 86704; 86709; 86803; 87340; 93005; 96360; 99285; 80320; 83880; 84443; 84484; 85025; 85610; 85730; 93010; 99284; J3490

== ENCOUNTER 2024-02-24 12:40 | Emergency (ER) | payer SELFPAY ==
[2024-02-24 12:52] VITALS: BP 177/97; PULSE 103; RESP 20; TEMP 36.6; O2SAT 96
--- NOTE | 2024-02-24 13:03 | ED.GENADUL_ITS ---
Discharge Plan Disposition Patient Disposition: Home Discharge Details Clinical Impression: Hx of falling, Mild TBI (traumatic brain injury), Elevated ETOH level, Nausea, Blood pressure elevated without history of HTN Primary Care Provider: Unknown,Unknown ED Provider: Nando Jon Home Meds and New Rx's Prescriptions: No Action No Known Home Meds Discharge Instructions Instructions: Head Injury (ED) Additional Instructions: You are seen in the emergency department for your nausea and history of falling. You may have had a concussion. As we discussed if you develop vomiting that does not stop or if you develop any weakness please return to the emergency department. For your pain please take medications as follows: 1. Take acetaminophen (Tylenol), 1,000 mg (two 500 mg tabs) every 6 hours [2. Take ibuprofen (Advil), 400 mg every 6 hours.] HPI General Date/Time Provider Initiated Documentation: 02/24/24 13:03 . HPI Narrative: MDM This is an overall well-appearing mildly tachycardic but normothermic 33-year-old male with cocaine use decreased p.o. with routine ethanol concerning for the possibility of electrolyte abnormalities and ACS. Based on [place] CT head no indication for CT head as my suspicion for intracranial hemorrhage is e xceedingly low as patient has not been vomiting. No midline cervical spinal tenderness and negative based on Nexus criteria. Patient has elevated blood pressure and mild tachycardia but is not tremulous and has no tongue fasciculations my suspicion for withdrawal is low. He does have elevated blood pressure without diagnosis of hypertension. He is not volume overloaded to suggest acute heart failure. Will check renal function to ensure that he does not have an AP. Given cocaine use will obtain troponin. No pain out of proportion to suggest necrotizing soft tissue infection. No chest pain or trauma to suggest to suggest ACS. Soft nontender abdomen so not concern for intra-abdominal infection. Neurologically intact so doubt CVA based on the patient's age. Will obtain basic labs and treat with acetaminophen. Instantly possible that the patient has had a mild traumatic brain injury. He has had no tonic-clonic activity to suggest seizures I do not feel that he requires an EEG. He is neurologically intact and so I am not suspicious of CVA on so I do not feel that the patient requires an MRI nor would he be a candidate for tPA. 2 PM Heart rate 91 on ECG. 2:22 PM CBC lacks anemia thrombocytopenia and leukocytosis. 2:40 PM Normal reassuring magnesium level. Negative troponin. Mildly elevated ethanol level at 45.5 mg/dL. Comprehensive metabolic panel with mildly elevated LFTs. Mild anion gap. No AP. No hyperglycemia. LFTs improved compared to prior. No acute electrolyte abnormalities. 2:45 PM Patient felt mildly improved. Labs are reassuring. He received a ride to the emergency department. His alcohol level is mildly elevated. He will receive a ride home. I advised ED return for any vomiting any fevers any chest pain or shortness of breath. Patient understood his return indications and was discharged with an empiric trial of expectant outpatient management. I have asked health chief unit forester Treasure to have the patient seen by a primary care emily graham in the next 10 days as she does not have a PCP. He received a ride home. Patient was in the emergency department for approximately 4 hours. Based on ethanol clearance of 30 mg/dL/h he will have a negative ethanol level. He is clinically sober and not driving so will discharge. Per Nexus criteria, cervical CT not obtained. The patient had no c-spine midline tenderness, no evidence of intoxication, was AAOx3, had no focal neurological deficits, and no painful distracting injuries. [place] Head CT Criteria Major Criteria GCS < 15 : [No] Open or depressed skull Fx: [No] Sign of Basilar Skull Fx: [No] > 2 Episodes Vomiting: [No] Anticoagulation: [No] Age > 65: [No] Minor Criteria Retrograde Amnesia >30min: [No] Dangerous Mechanism: [No] Per [place] head CT rules, CT head not obtained. The patient had a GCS of 15, no open/depressed skull fracture, no signs of basilar skull fracture (hemotympanum, raccoon eyes, benitez's sign, CSF [place]/Rhinorrhea), no vomiting, and is less than 65 years of age. Chronic conditions affecting the care of the patient: Alcohol use History obtained from an outside historian: N/A External record review: N/A Medications: Acetaminophen ECG interpretation Narrow complex normal sinus rhythm at a rate of 91. Normal axis. Intervals within normal limits. No ST segment abnormalities. No T wave versions. No acute injury pattern. No significant changes compared to prior dated earlier this year. Social determinants of health affecting disposition: N/A Management discussed with: N/A Treatment/interventions considered: N/A Response to therapies provided: N/A HPI This is a previously healthy 33-year-old male arrived to the emergency department in the setting of nausea and head strike with generalized headache. Patient reports that he has been drinking for multiple days in a row. He does state he has a history of some shakes if he does not drink but has not gone through withdrawal and denies history of intubations and seizures. Patient reportedly fell 2 nights ago. He has been nauseous but not vomiting. He is not anticoagulated. He did not lacerate his scalp. He occasionally gets this shakes when he does not drink. He last drank last night. He also several days ago insufflated cocaine. He denies IV drug use. He denies chest pain abdominal pain dysuria or frequency. Exam General: Well-appearing in no acute distress speaking in complete sentences. Head: Normocephalic, atraumatic. Eye:[Pupils equal, round reactive to light.] Extraocular eye movements intact. No conjunctival injection. No scleral icterus. Ear, nose, mouth, throat: Grossly normal inspection. Normal voice, handling secretions normally. No hemotympanum bilaterally. No septal hematoma. Neck: Trachea midline. No midline cervical spinal tenderness. Cardiovascular: Well-perfused distal extremities. Regular rate and rhythm. Respiratory: Nonlabored respiration. Clear lungs bilaterally. Gastrointestinal: Nondistended abdomen. Musculoskeletal: No edema. Moving all 4 extremities spontaneously. Skin: Normal for age and race, grossly normal temperature and turgor. No acute rash. Neurologic: Alert and appropriate, no apparent acute deficits. Psychiatric: Mood and manner are appropriate. Grooming and personal hygiene are appropriate. Related Data Home Medications Medication Instructions Recorded Confirmed Unknown [No Known Home Meds] 10/19/15 02/24/24 Allergies Allergy/AdvReac Type Severity Reaction Status Date / Time No Known Allergies Allergy Unverified 02/24/24 12:54 General Stated Complaint: HeadInjury KHADAR: 3 Course Vital Signs Vital signs: Vital Signs Temperature 36.6 C 02/24/24 12:52 Pulse 103 H 02/24/24 12:52 Respiratory Rate 20 02/24/24 12:52 Blood Pressure 177/97 H 02/24/24 12:52 Pulse Oximetry 96 02/24/24 12:52 Temperature 36.6 C 02/24/24 12:52 Temperature Source Tympanic 02/24/24 12:52 Pulse 103 H 02/24/24 12:52 Respiratory Rate 20 02/24/24 12:52 Blood Pressure 177/97 H 02/24/24 12:52 Blood Pressure Position Sitting 02/24/24 12:52 Pulse Oximetry 96 02/24/24 12:52 Oxygen Delivery Method Room Air 02/24/24 12:52 Oxygen Flow Rate 0 02/24/24 12:52 Pain Level 7 02/24/24 12:52 Medical Decision Making Quality:SDOH Health Related Social Needs: Health related social needs risk of homeless PFSH All Active Problems (Updated 02/24/24 @ 16:36 by Nando Jon MD) Blood pressure elevated without history of HTN (Acute) Nausea (Acute) Elevated ETOH level (Acute) Mild TBI (traumatic brain injury) (Acute) Hx of falling (Acute) Social History Smoking/Tobacco Use Status: Current every day Tobacco Type: cigarettes Smoking risk assessment performed?: Yes Alcohol Intake: current Alcohol Intake frequency: 3 or more drinks per day Drug use: Daily Substance use type: marijuana and crack/cocaine Housing: house Do you feel safe at home: Yes Do you feel safe in your relationship?: Yes
--- NOTE | 2024-02-24 13:15 | RT.EKG_ITS ---
APPROVED REPORT Exam: Resting ECG Reason for Exam: Cocaine use Patient Location: E HR:91 bpm ECG Measurements Heart Rate 91 AXIS SC 128 P 19 QRSd 97 QRS 55 QT 362 T 22 QTc 447 Conclusion Sinus rhythm...normal P axis, V-rate 60- 99 Probable left atrial enlargement...P >50mS, <-0.10mV V1 Narrow complex normal sinus rhythm at a rate of 91. Normal axis. Intervals within normal limits. N o ST segment abnormalities. No T wave versions. No acute injury pattern. No significant changes co mpared to prior dated earlier this year.
[2024-02-24 13:46] VITALS: PULSE 91
[2024-02-24 14:17] LABS: Abs Immature Grans 0.02 10^3/uL (0.0-0.06); Absolute Basophil Count 0.07 10^3/uL (0.0-0.2); Absolute Eosinophil Count 0.02 10^3/uL (0.0-0.7); Absolute Lymphocyte Count 1.17 10^3/uL (1.2-3.4); Absolute Monocyte Count 0.59 10^3/uL (0.1-0.8); Absolute Neutrophil Count 6.75 10^3/uL (1.2-6.7); Basophils % 0.8; Eosinophils % 0.2; HCT 41.2 % (40.0-50.0); HGB 14.3 g/dL (13.5-17.5); Immature Grans % 0.2; Lymphocytes % 13.6; MCH 31.6 pg (27.0-33.0); MCHC 34.7 % (32.0-36.0); MCV 91 fL (80-95); Monocytes % 6.8; Neutrophils % 78.4; Platelet Count 247 10^3/uL (130-400); RBC 4.52 10^6/uL (4.36-5.78); RDW 12.6 % (11.8-14.1); WBC 8.62 10^3/uL (4.4-10.8)
[2024-02-24] MEDS: ACETAMINOPHEN 1,000 MG/100 ML BTL 400 MG IVPB (14:19)
[2024-02-24] MEDS: Normal Saline 1,000 ML 1000 ML IV (14:19)
[2024-02-24 14:39] LABS: ALT 91 U/L (16-63); AST 55 U/L (15-37); Alkaline Phosphatase 57 U/L (46-116); Anion Gap 11.9 mmol/L (3-11); BUN 9 mg/dL (7-18); Bilirubin, Total 0.4 mg/dL (0.2-1.0); CO2 27.1 mmol/L (21.0-32.0); CREATININE 0.7 mg/dL (0.70-1.30); Calcium 8.5 mg/dL (8.5-10.1); Chloride 100 mmol/L (98-107); ETHANOL BLOOD 45.5 mg/dL (<10); Estimated GFR 124.77 (mL/min/1.73m2); Glucose 99 mg/dL (74-106); Magnesium 2.1 mg/dL (1.8-2.4); Sodium 139 mmol/L (136-145); Total Protein 7.6 g/dL (6.4-8.2); Troponin I < 50 ng/L (< or =60)
[2024-02-24 15:05] VITALS: BP 171/103; PULSE 82; RESP 18; O2SAT 97
--- NOTE | 2024-02-24 15:05 | NUR.NOTE ---
Reeferral given to Care Managers to help Pt obtain a Primary Care Provider within 10 days
== END 2024-02-24 15:08 | disposition home or self-care (01) ==
PROVIDERS: Emergency Provider Emergency Medicine
DX: S09.8XXA Other specified injuries of head, initial encounter (principal); F10.10 Alcohol abuse, uncomplicated; F17.210 Nicotine dependence, cigarettes, uncomplicated; W01.198A Fall on same level from slipping, tripping and stumbling with subsequent striking against other object, initial encounter
CPT/HCPCS: 36415; 80053; 93005; 96361; 96374; 99284; 80320; 83735; 84484; 85025; 93010; J0131

== ENCOUNTER 2024-03-15 16:24 | Emergency (ER) | payer SELFPAY ==
[2024-03-15 16:25] VITALS: BP 171/93; PULSE 78; RESP 15; TEMP 36.5; O2SAT 96
[2024-03-15 16:29] VITALS: BP 171/93; PULSE 78; RESP 15; TEMP 36.5; O2SAT 96
--- NOTE | 2024-03-15 16:45 | DI.CT_ITS ---
Exam(s) CT HEAD WO EXAM: CT HEAD WO CLINICAL HISTORY: FALL, HEADACHE. TECHNIQUE: Imaging Protocol: Axial computed tomography images with coronal and sagittal reformatted images were created and reviewed COMPARISON: CT CT BRAIN NECK CTA from 12/01/2023 FINDINGS: There are no skull fractures. There is no fluid in the visualized paranasal sinuses. There is no evidence of intracranial hemorrhage, mass effect, or shift of midline structures. There are no extra-axial fluid collections. The ventricles are not enlarged or shifted and there is no blo od within the ventricular system nor within the basal cisterns. IMPRESSION: No acute intracranial findings on this noninfused CT scan of the brain. Called by myself to ER provider RADIATION DOSE DELIVERED: 663.37mGy.cm Total DLP DATA REPOSITORY: All CT scans at this facility are submitted to the National Radiology Data Registry (NRDR) Dose Index Registry (DIR) with the [employer] (ACR). RADIATION OPTIMIZATION: All CT scans at this facility use at least one of these dose optimization te chniques: automated exposure control; mA and/or kV adjustment per patient size (includes targeted exa ms where dose is matched to clinical indication); or iterative reconstruction.
[2024-03-15 17:13] LABS: Abs Immature Grans 0.02 10^3/uL (0.0-0.06); Absolute Basophil Count 0.06 10^3/uL (0.0-0.2); Absolute Eosinophil Count 0.13 10^3/uL (0.0-0.7); Absolute Monocyte Count 0.81 10^3/uL (0.1-0.8); Absolute Neutrophil Count 4.77 10^3/uL (1.2-6.7); Basophils % 0.8 %; Eosinophils % 1.6 %; HCT 44.6 % (40.0-50.0); HGB 15.1 g/dL (13.5-17.5); Immature Grans % 0.3 %; Lymphocytes % 26.6 %; MCH 31.7 pg (27.0-33.0); MCHC 33.9 % (32.0-36.0); MCV 94 fL (80-95); MPV 10.5 fL (8.0-11.0); Monocytes % 10.3 %; Neutrophils % 60.4 %; Platelet Count 223 10^3/uL (130-400); RBC 4.76 10^6/uL (4.36-5.78); RDW 12.5 % (11.8-14.1); RDW-SD 43.4 fL; WBC 7.89 10^3/uL (4.4-10.8)
[2024-03-15] MEDS: Prochlorperazine 10 MG/2 ML VIAL 5 MG IVP (17:17)
[2024-03-15] MEDS: Ketorolac 30 MG/ML VIAL IVP (17:18)
[2024-03-15] MEDS: diphenhydrAMINE 50 MG/ML VIAL 25 MG IVP (17:18)
[2024-03-15 17:24] LABS: Anion Gap 9.2 mmol/L (3-11); BUN 11 mg/dL (7-18); CO2 27.8 mmol/L (21.0-32.0); CREATININE 0.9 mg/dL (0.70-1.30); Calcium 9.4 mg/dL (8.5-10.1); Chloride 102 mmol/L (98-107); Creatine Kinase 112 U/L (39-308); Estimated GFR 115.65 (mL/min/1.73m2); Glucose 95 mg/dL (74-106); Magnesium 2.3 mg/dL (1.8-2.4); Potassium 4.4 mmol/L (3.5-5.1); Sodium 139 mmol/L (136-145)
--- NOTE | 2024-03-15 17:32 | ED.GENADUL_ITS ---
Discharge Plan Disposition Patient Disposition: Home Condition: Stable Discharge Details Clinical Impression: Paresthesia, Headache Primary Care Provider: None,None ED Provider: Nandini Skelton Home Meds and New Rx's Prescriptions: No Action No Known Home Meds Discharge Instructions Instructions: General Headache (ED) Additional Instructions: Monitor symptoms and get reevaluated if you have any worsening, progression of your tingling or any associated weakness. Take Motrin and Tylenol for headache. Make sure to drink lots of water. Please follow-up with your primary care provider for reevaluation of symptoms. HPI General Date/Time Provider Initiated Documentation: 03/15/24 16:28 . Limitations to Documentation: no limitations . Information obtained by: patient . HPI Narrative: 33-year-old gentleman with out significant past medical history presents for evaluation of persistent headache. Symptoms associated with numbness and tingling in both hands and feet. He reports that he had a pretty significant fall on the day of the clips, he fell backwards and struck his head. No loss of consciousness. Was evaluated a few days later with persistent headache. He s tates that he did not have a head CT at that time. He reports a persistent intermittent pressure-like headache. He states the symptoms of tingling started this week. Have been intermittent. Not associated with weakness. Not associated with any speech changes or difficulty walking. Has not tried anything for the headache. Related Data Home Medications Medication Instructions Recorded Confirmed Unknown [No Known Home Meds] 10/19/15 03/15/24 Allergies Allergy/AdvReac Type Severity Reaction Status Date / Time No Known Allergies Allergy Unverified 03/15/24 16:29 General Stated Complaint: Headache KHADAR: 3 Exam Narrative Exam Narrative: Review of Systems: All systems reviewed & are unremarkable except as noted in HPI and below Well-developed, no acute distress NCAT PERRL, normal conjunctiva RRR, no murmur Unlabored respiratory effort, clear bilaterally Nondistended abdomen, nontender Extremities w/o deformity, no cyanosis, no edema No rashes or lesions. no focal neurologic deficits, no past-pointing, no sensory deficits, full strength throughout, normal gait Appropriate mood and affect Course Vital Signs Vital signs: Vital Signs Temperature 36.5 C 03/15/24 16:25 Pulse 78 03/15/24 16:25 Respiratory Rate 15 03/15/24 16:25 Blood Pressure 171/93 H 03/15/24 16:25 Pulse Oximetry 96 03/15/24 16:25 Temperature 36.5 C 03/15/24 16:29 Temperature Source Tympanic 03/15/24 16:29 Pulse 78 03/15/24 16:29 Respiratory Rate 15 03/15/24 16:29 Respiratory Effort Normal 03/15/24 16:29 Blood Pressure 171/93 H 03/15/24 16:29 Blood Pressure Position Sitting 03/15/24 16:29 Pulse Oximetry 96 03/15/24 16:29 Oxygen Delivery Method Room Air 03/15/24 16:29 Oxygen Flow Rate 0 03/15/24 16:29 Pain Level 4 03/15/24 17:18 Lab/Test Results Lab/Test Results: Laboratory Tests Range/Units 03/15/24 17:04 WBC (4.4-10.8) 10^3/uL 7.89 RBC (4.36-5.78) 10^6/uL 4.76 Hgb (13.5-17.5) g/dL 15.1 Hct (40.0-50.0) % 44.6 MCV (80-95) fL 94 MCH (27.0-33.0) pg 31.7 MCHC (32.0-36.0) % 33.9 RDW (11.8-14.1) % 12.5 Plt Count (130-400) 10^3/uL 223 MPV (8.0-11.0) fL 10.5 Immature Gran % % 0.3 Neutrophils % % 60.4 Lymphocytes % % 26.6 Monocytes % % 10.3 Eosinophils % % 1.6 Basophils % % 0.8 Nucleated RBC % (0.0-0.3) % 0.0 Absolute Neutrophils (1.2-6.7) 10^3/uL 4.77 Absolute Lymphocytes (1.2-3.4) 10^3/uL 2.10 Absolute Monocytes (0.1-0.8) 10^3/uL 0.81 H Absolute Eosinophils (0.0-0.7) 10^3/uL 0.13 Absolute Basophils (0.0-0.2) 10^3/uL 0.06 Sodium (136-145) mmol/L 139 Potassium (3.5-5.1) mmol/L 4.4 Chloride (98-107) mmol/L 102 Carbon Dioxide (21.0-32.0) mmol/L 27.8 Anion Gap (3-11) mmol/L 9.2 BUN (7-18) mg/dL 11 Creatinine (0.70-1.30) mg/dL 0.9 Est GFR (CKD-EPI 2020) (mL/min/1.73m2) 115.65 Glucose (74-106) mg/dL 95 Calcium (8.5-10.1) mg/dL 9.4 Magnesium (1.8-2.4) mg/dL 2.3 Creatine Kinase (39-308) U/L 112 Medical Decision Making Emergent evaluation of headache and sensory change subjectively. Patient reports headache for the last month after a trauma. Patient has no neurologic deficits. I doubt an acute intracranial process, but perhaps more of a concussive syndrome. Lab work obtained. No electrolyte derangement. Medications given for symptom relief. Patient does report he feels better. A CT scan was obtained and no intracranial process noted. Patient advised to take Motrin and Tylenol, increase fluids for headache improvement. Concussion precautions discussed and recommended follow-up with PCP Medical Records Medical records reviewed: Yes I reviewed the patient's medical records. Lab Data Lab results reviewed: Yes I reviewed the patient's lab results. Quality:SDOH Health Related Social Needs: Health related social needs risk of homeless PFSH All Active Problems (Updated 03/15/24 @ 18:38 by Nandini Skelton MD) Headache (Acute) Paresthesia (Acute) Blood pressure elevated without history of HTN (Acute) Nausea (Acute) Elevated ETOH level (Acute) Mild TBI (traumatic brain injury) (Acute) Hx of falling (Acute) Social History Smoking/Tobacco Use Status: Current every day Tobacco Type: cigarettes Smoking risk assessment performed?: Yes Alcohol Intake: current Alcohol Intake frequency: 3 or more drinks per day Drug use: Daily Substance use type: marijuana and crack/cocaine Housing: house Do you feel safe at home: Yes Do you feel safe in your relationship?: Yes
[2024-03-15 17:43] VITALS: BP 154/90; PULSE 97; RESP 15; O2SAT 98
[2024-03-15 18:55] VITALS: PULSE 70; RESP 18; O2SAT 97
== END 2024-03-15 18:55 | disposition home or self-care (01) ==
LOC: ER 19:04
PROVIDERS: Emergency Provider Emergency Medicine
DX: R20.2 Paresthesia of skin (principal); R51.9 Headache, unspecified; F17.210 Nicotine dependence, cigarettes, uncomplicated
CPT/HCPCS: 36415; 80048; 82550; 96374; 96375; 99284; 70450; 83735; 85025; J0780; J1200; J1885

== ENCOUNTER 2025-03-27 16:39 | Emergency (ER) | payer SELFPAY ==
[2025-03-27] VITALS (15 sets, daily range): BP systolic 119–140; BP diastolic 77–86; PULSE 75–105; RESP 16–18; TEMP 36.6; O2SAT 93–98
--- NOTE | 2025-03-27 16:30 | RT.EKG_ITS ---
APPROVED REPORT Exam: Resting ECG Reason for Exam: dizziness Patient Location: E HR:102 bpm ECG Measurements Heart Rate 102 AXIS SC 114 P 38 QRSd 92 QRS 75 QT 343 T 7 QTc 446 Conclusion Sinus tachycardia...rate> 99
--- NOTE | 2025-03-27 16:52 | W.ED.GENAD ---
Discharge Plan Disposition Patient Disposition: Home Condition: Stable Discharge Details Clinical Impression: Complicated migraine with status migrainosus Primary Care Provider: Nazario Lee ED Provider: Jeremiah Sheppard Home Meds and New Rx's Prescriptions: New sumatriptan succinate 25 mg tablet See Rx Instructions .ROUTE .COMPLEX Qty: 30 0RF Rx Instructions: take 1 tab at onset of headache; if no relief may repeat 1 tab after at least 2 hrs; max = 4 tabs/24 hr Discharge Instructions Instructions: Sumatriptan, Migraine in adults Additional Instructions: You were seen in the emergency department for your right-sided headache, you have had some visual aura in association with onset of headache, you have had ongoing issues of a stable headache syndrome for months-should be reassured that nothing acutely dangerous is going on and you have not been decompensating. Whenever you feel headache coming on you should take 1000 mg of acetaminophen or Tylenol, 400 mg of ibuprofen or Advil, drink 2 to 3 glasses of water, have some caffeine, you can add an Benadryl tablet as well, remove yourself from loud or stimulating environments, you may apply cool compresses or alternate heat and cold to the area of pain. You can start taking the prescription sumatriptan that I have sent into the pharmacy, you take 1 of these every morning to prevent migraine and you can add a second dose at the onset of a headache but only 2 tabs per day max. I am placing a referral to our care management team to help you establish insurance and primary care in the area. Referrals: Care Management [Provider Group] [facility] [Provider Group] [facility] [Provider Group] [facility] [Provider Group] Nazario Lee [Primary Care Provider] - [facility] General Date/Time Provider Initiated Documentation: 03/27/25 16:52. HPI Narrative: 34 year-old male presents to ED today by POV/ambulating with a chief complaint of ongoing unilateral headaches, with occasional flashes or seeing stars, smelling mildew, on and off for a few months, evaluated with negative CT's at [facility]. Quality described as generalized headache, seems to be worse indoors, states he is concerned after an exposure where he was in his grandparents home and smelled and saw septic fumes entering the home, or concern for mold exposures- now sleeping in his mother's car outside as he feels his symptoms are worse in the house, no radiation to active cough, fevers, sweats, nausea/vomiting, neck stiffness, visual loss or blurry vision, shortness of breath, chest pain. Severity is described as moderate. Palliating factors include nothing specific attempted- did receive possibly some antibiotics. Provoking factors include nothing specific. Patient not anticoagulated. Related Data Home Medications ?Medication ?Instructions ?Recorded ?Confirmed sumatriptan succinate 25 mg tablet See Rx Instructions PO .COMPLEX 03/27/25 #30 tabs Previous Rx's ?Medication ?Instructions ?Recorded sumatriptan succinate 25 mg tablet See Rx Instructions PO .COMPLEX 03/27/25 #30 tabs Allergies Allergy/AdvReac Type Severity Reaction Status Date / Time No Known Allergies Allergy Unverified 03/27/25 16:46 General Stated Complaint: Dizzy/Sync KHADAR: 3 Review of Systems All systems reviewed & are unremarkable except as noted in HPI and below Exam Narrative Exam Narrative: GENERAL APPEARANCE: Well-nourished, non-toxic, awake and alert, atraumatic, no acute distress. SKIN: Warm, pink, dry, intact, without rashes/lesions/ulcerations. HEAD: Normocephalic, atraumatic, normal hair distribution for gender/age. EYES: Normal conjunctiva, no exudates on lids/lashes, EOMs intact without nystagmus, visual jean-baptiste ENT: Nares patent, no circumoral cyanosis, no facial swelling NECK: Supple, trachea midline, painless cervical ROM. LUNGS/CHEST: Lungs CTA bilaterally- no rhonchi/rales/wheezes diffusely, non-labored respirations, normal A/P diameter, symmetrical expansion, no chest wall deformity HEART (CV/PV): Regular rate and rhythm without murmur, no peripheral edema, no JVD. ABDOMEN: Soft, non-distended, no guarding. MSK: Normal ROM, no swelling/deformity to bilateral UEs or LEs, moving all extremities without weakness, no cyanosis, spine midline without tenderness, normal curvature. NEURO: Mental Status AAOx4 - alert to person, place, time, events No facial droop, no forehead involvement. Motor: No focal weakness - strength 5/5 in bilateral UEs and LEs, proximal and distal, symmetric. Sensory: sensation intact to light touch globally. Gait normal: patient ambulated without ataxia into ED room. PSYCH: euthymic, cooperative, pleasant, appropriate speech Course Vital Signs Vital signs: Vital Signs Temperature 36.6 C 03/27/25 16:41 Pulse 92 H 03/27/25 16:41 Respiratory Rate 18 03/27/25 16:41 Blood Pressure 119/86 03/27/25 16:41 Pulse Oximetry 96 03/27/25 16:41 Temperature 36.6 C 03/27/25 16:41 Temperature Source Oral 03/27/25 16:41 Pulse 92 H 03/27/25 16:41 Respiratory Rate 18 03/27/25 16:41 Blood Pressure 119/86 03/27/25 16:41 Pulse Oximetry 96 03/27/25 16:41 Oxygen Delivery Method Room Air 03/27/25 16:41 Oxygen Flow Rate 0 03/27/25 16:41 Pain Level 6 03/27/25 16:41 Comment head ache 03/27/25 16:41 Medical Decision Making This dictation utilizes [id number] dictation software and may contain unedited grammatical errors. 34 year-old male presents to ED today by POV/ambulating with a chief complaint of ongoing unilateral headaches, with occasional flashes or seeing stars, smelling mildew, on and off for a few months, evaluated with negative CT's at [facility]. Quality described as generalized headache, seems to be worse indoors, states he is concerned after an exposure where he was in his grandparents home and smelled and saw septic fumes entering the home, or concern for mold exposures- now sleeping in his mother's car outside as he feels his symptoms are worse in the house, no radiation to active cough, fevers, sweats, nausea/vomiting, neck stiffness, visual loss or blurry vision, shortness of breath, chest pain. Severity is described as moderate. Palliating factors include nothing specific attempted- did receive possibly some antibiotics. Provoking factors include nothing specific. Patients' medical history: Significant headache and anxiety history. Family and social history: Possible mold exposures in various family homes. Pertinent exam findings / vital signs include neuro intact, vision grossly intact, by cardiopulmonary status, nontoxic and afebrile, benign abdomen. Differential / pathologies of concern include complex migraine, Lyme disease, electrolyte abnormality/dehydration, hypothyroidism. Diagnostic studies of: - CBC, CMP, TSH, magnesium, EKG, XR chest, tick and Lyme panel. - CBC shows a nonspecific mild leukocytosis of 11 - CMP is completely unremarkable - Magnesium within normal is - TSH within normal limits - XR chest shows no acute pathology - EKG shows normal sinus rhythm without ischemic changes, no heart block or ischemic changes, no arrhythmia Interventions of: - 1 L IVF NS, p.o. Fioricet, 650 mg p.o. APAP, 15 mg IVP ketorolac, 10 mg IVP Reglan, 25 mg IVP Benadryl, 10 mg IV dexamethasone-with significant relief. ED Course/Assessment/Plan: 34-year-old male presents to the emergency department for brain fog and headache with occasional visual auras, possible mold exposure months ago, has had multiple ER visits for the past few months about the same issue expresses concern that he could have mold growing in his body. He is neuro intact and his syndrome is more consistent with a complex migraine with aura, he has poor health literacy and I did arrange for him to see care management to establish primary care and obtain insurance so he can follow-up with neurology, I planned to give him a supply of sumatriptan he states he cannot afford prescription medications I did state that this is the best that the ER could do, try to provide reassurance that he does not need additional CT scans with multiple negatives with a syndrome over months and stable symptoms of unilateral headache consistent with migraine. Findings not consistent with malignancy, stroke, sepsis, infection, meningismus. Disposition of Complicated Migraine with Status Migrainosus. Patient verbalized understanding of the plan and return to ED criteria and engaged in shared decision making. Medical Records Medical records reviewed: Yes I reviewed the patient's medical records. Imaging Data Radiologic Study: Attestation: I personally reviewed and interpreted this imaging study as follows: Imaging: X-Ray Radiologist's impression: EXAM: XR CHEST 2V PA LATERAL CLINICAL HISTORY: cough. TECHNIQUE: 2D digital imaging was performed. COMPARISON: CR,XR XR CHEST 2V PA LATERAL from 11/25/2023 FINDINGS: 2 views: Heart size is normal. The mediastinum is not widened. Lungs are clear. No infiltrates nor pleural effusions. IMPRESSION: No acute pulmonary findings. Lab Data Lab results reviewed: Yes I reviewed the patient's lab results. Labs: Laboratory Tests Range/Units 03/27/25 17:17 WBC (4.4-10.8) 10^3/uL 11.00 H RBC (4.36-5.78) 10^6/uL 5.23 Hgb (13.5-17.5) g/dL 16.2 Hct (40.0-50.0) % 47.0 MCV (80-95) fL 90 MCH (27.0-33.0) pg 31.0 MCHC (32.0-36.0) % 34.5 RDW (11.8-14.1) % 12.7 Plt Count (130-400) 10^3/uL 275 MPV (8.0-11.0) fL 9.9 Immature Gran % % 0.3 Neutrophils % % 75.4 Lymphocytes % % 16.1 Monocytes % % 6.6 Eosinophils % % 1.3 Basophils % % 0.3 Nucleated RBC % (0.0-0.3) % 0.0 Absolute Neutrophils (1.2-6.7) 10^3/uL 8.29 H Absolute Lymphocytes (1.2-3.4) 10^3/uL 1.77 Absolute Monocytes (0.1-0.8) 10^3/uL 0.73 Absolute Eosinophils (0.0-0.7) 10^3/uL 0.14 Absolute Basophils (0.0-0.2) 10^3/uL 0.03 Sodium (136-145) mmol/L 139 Potassium (3.5-5.1) mmol/L 3.6 Chloride (98-107) mmol/L 102 Carbon Dioxide (21.0-32.0) mmol/L 29.8 Anion Gap (3-11) mmol/L 7.2 BUN (7-18) mg/dL 10 Creatinine (0.70-1.30) mg/dL 0.9 Est GFR (CKD-EPI 2020) (mL/min/1.73m2) 114.93 Glucose (74-106) mg/dL 90 Calcium (8.5-10.1) mg/dL 9.4 Magnesium (1.8-2.4) mg/dL 1.9 Total Bilirubin (0.2-1.0) mg/dL 0.8 AST (15-37) U/L 30 ALT (16-63) U/L 74 H Alkaline Phosphatase (46-116) U/L 72 Total Protein (6.4-8.2) g/dL 8.3 H Albumin (3.4-5.0) g/dL 4.5 TSH (0.36-3.74) uIU/mL 1.06 Quality:SDOH Health Related Social Needs: No Data to Display PFSH All Active Problems (Updated 03/27/25 @ 18:10 by DIEGO Tello) Complicated migraine with status migrainosus (Acute) Social History Smoking/Tobacco Use Status: Current every day Tobacco Type: cigarettes Smoking risk assessment performed?: Yes Alcohol Intake: current Alcohol Intake frequency: 3 or more drinks per day Drug use: Daily Substance use type: marijuana and crack/cocaine Housing: house Do you feel safe at home: Yes Do you feel safe in your relationship?: Yes
--- NOTE | 2025-03-27 17:00 | DI.RAD_ITS ---
Exam(s) XR CHEST 2V PA LATERAL EXAM: XR CHEST 2V PA LATERAL CLINICAL HISTORY: cough. TECHNIQUE: 2D digital imaging was performed. COMPARISON: CR,XR XR CHEST 2V PA LATERAL from 11/25/2023 FINDINGS: 2 views: Heart size is normal. The mediastinum is not widened. Lungs are clear. No infiltrates nor pleural effusions. IMPRESSION: No acute pulmonary findings. DATA REPOSITORY: RADIATION DOSE DELIVERED:
[2025-03-27 17:25] LABS: Abs Immature Grans 0.03 10^3/uL (0.0-0.06); Absolute Basophil Count 0.03 10^3/uL (0.0-0.2); Absolute Eosinophil Count 0.14 10^3/uL (0.0-0.7); Absolute Lymphocyte Count 1.77 10^3/uL (1.2-3.4); Absolute Monocyte Count 0.73 10^3/uL (0.1-0.8); Basophils % 0.3 %; Eosinophils % 1.3 %; HGB 16.2 g/dL (13.5-17.5); Immature Grans % 0.3 %; Lymphocytes % 16.1 %; MCHC 34.5 % (32.0-36.0); MCV 90 fL (80-95); MPV 9.9 fL (8.0-11.0); Monocytes % 6.6 %; Neutrophils % 75.4 %; Platelet Count 275 10^3/uL (130-400); RBC 5.23 10^6/uL (4.36-5.78); RDW 12.7 % (11.8-14.1); RDW-SD 41.3 fL
[2025-03-27 17:26] LABS: Absolute Neutrophil Count 8.29 10^3/uL (1.2-6.7)
[2025-03-27] MEDS: Dexamethasone 10 MG/ML VIAL IVP (17:29)
[2025-03-27] MEDS: diphenhydrAMINE 50 MG/ML VIAL 25 MG IVP (17:29)
[2025-03-27] MEDS: Ketorolac 15 MG/ML VIAL IVP (17:29)
[2025-03-27] MEDS: Metoclopramide 10 MG/2 ML VIAL IVP (17:29)
[2025-03-27] MEDS: Butalbital/Acetaminophen/Caffeine 50/325/40 TAB PO (17:29)
[2025-03-27] MEDS: Acetaminophen 325 MG TAB 650 MG PO (17:30)
[2025-03-27] MEDS: Normal Saline 1,000 ML 1000 ML IV (17:30)
[2025-03-27] MEDS: SUMAtriptan 25 MG TAB PO (17:30)
[2025-03-27 18:03] LABS: ALT 74 U/L (16-63); AST 30 U/L (15-37); Albumin 4.5 g/dL (3.4-5.0); Alkaline Phosphatase 72 U/L (46-116); Anion Gap 7.2 mmol/L (3-11); BUN 10 mg/dL (7-18); Bilirubin, Total 0.8 mg/dL (0.2-1.0); CO2 29.8 mmol/L (21.0-32.0); CREATININE 0.9 mg/dL (0.70-1.30); Calcium 9.4 mg/dL (8.5-10.1); Chloride 102 mmol/L (98-107); Estimated GFR 114.93 (mL/min/1.73m2); Glucose 90 mg/dL (74-106); Magnesium 1.9 mg/dL (1.8-2.4); Potassium 3.6 mmol/L (3.5-5.1); Sodium 139 mmol/L (136-145); TSH (W/Ref FT4) 1.06 uIU/mL (0.36-3.74); Total Protein 8.3 g/dL (6.4-8.2)
[2025-03-29 09:45] LABS: Lyme Ab w Rflx to Lyme Confirm Negative (Negative)
[2025-03-31 01:35] LABS: Anaplasma phagocytophilum Negative (Negative); B. miyamotoi PCR Negative (Negative); Babesia divergens/MO-1 Negative (Negative); Babesia duncani Negative (Negative); Babesia microti Negative (Negative); Ehrlichia chaffeensis Negative (Negative); Ehrlichia ewingii/canis Negative (Negative); Ehrlichia muris eauclairensis Negative (Negative)
== END 2025-03-27 19:32 | disposition home or self-care (01) ==
LOC: ER 18:16
PROVIDERS: Emergency Provider Physician Assistant; PCP Nurse Practitioner Family
DX: G43.101 Migraine with aura, not intractable, with status migrainosus (principal); R42 Dizziness and giddiness
CPT/HCPCS: 99284 ×2; 96374; 96375; 80053; 87798; 93005; 96361; 71046; 83735; 84443; 85025; 86618; 93010; J1100; J1200; J1885; J2765

== ENCOUNTER 2025-04-01 12:36 | Emergency (ER) | payer SELFPAY ==
--- NOTE | 2025-04-01 12:37 | ED.GENADUL_ITS ---
Discharge Plan Discharge Details Chief Complaint: Headache Clinical Impression: Chest pain, unspecified, Headache, unspecified Primary Care Provider: Nazario Lee ED Provider: Nando Jon Home Meds and New Rx's Prescriptions: No Action sumatriptan succinate 25 mg tablet See Rx Instructions .ROUTE .COMPLEX Qty: 30 0RF Rx Instructions: take 1 tab at onset of headache; if no relief may repeat 1 tab after at least 2 hrs; max = 4 tabs/24 hr HPI General Date/Time Provider Initiated Documentation: 04/01/25 12:37 . HPI Narrative: MDM This is an overall very well-appearing normothermic and not tachycardic 34-year-old male with multiple medical complaints. Concerning his chest pain will obtain ECG and troponin testing the patient lack significant risk factors for ACS and if his troponin testing is reassuring will defer hospitalization. Concern the patient's headache he lacks red flags for headaches and will defer CT scan. Specifically patient did not have sudden onset headache and so my suspicion for subarachnoid hemorrhage was low. Patient is not markedly hypertensive to suggest RCVS. No nuchal rigidity nor fevers to suggest meningitis. Patient is not altered to suggest increased risk for encephalitis. Patient is neurologically intact and so my suspicion is low for CVA I do not feel the patient is a candidate for lytics. As result I do not feel the patient requires a CT scan of his head nor a neurological consult. I was not suspicious for large vessel occlusion so I did not feel the patient required a CT angiogram of his head. He has not been around generator to suggest increased risk for carbon monoxide toxicity. He had no tonic-clonic activity no tongue biting nor loss of bowel or bladder control to suggest increased risk for seizures I do not feel the patient requires an EEG. No recent chiropractic manipulation to suggest increased risk for cervical arterial dissection so I did not feel the patient required an angiogram of his neck. His hand cramping is concerning for the possibility of rhabdomyolysis given his young age so we will obtain a CK level. Will also assess basic labs in case patient has acute renal insufficiency. Will obtain ECG and labs. Unless patient's initial troponin is undetectable he will require repeat troponin. Chest pain reassuring as p neumothorax in the absence of trauma. No fevers to suggest pneumonia. Not hypotensive not a dialysis patients with suspicions of tamponade. No recent URI symptoms to suggest pericarditis. I signed patient out to Dr. Bauer pending ECG and lab work. HPI The patient presents for evaluation of headaches and chest pain. He reports experiencing severe headaches, which are currently mild but a ccompanied by significant brain fog that has been progressively worsening over the past 3 months. This began during a stay at his grandparents' house, where he was exposed to septic fumes due to a blocked vent. Despite attempts to mitigate the situation by running water and cleaning, he noticed a pervasive mildew smell. He also reports recent cramping in his hands and feet, chest tightness, and a sensation of pain radiating down his spine. He suspects an allergic reaction, as his symptoms seem to worsen indoors, particularly in certain houses, although his cousin's house is not so bad. He experiences intermittent headaches, constant brain fog, and occasional twitching. He also reports photophobia, with bright lights causing prolonged visual disturbances and occasional static or flashes of light. He has not had any recent chiropractic manipulation or falls but did hit his head a while ago. He endorses a centralized chest pain. Described as dull. Not radiating. Not worse when lying flat. No exacerbation or alleviators. He also experiences intermittent fevers, coughing, and unusual nausea, with one episode of vomiting. His symptoms are sporadic and do not appear to be time-dependent. He speculates that dust mites may be a trigger, as his symptoms improve outdoors in fresh air. Exam General: Well-appearing in no acute distress speaking in complete sentences. Head: Normocephalic, atraumatic. Eye:[Pupils equal, round reactive to light.] Extraocular eye movements intact. No conjunctival injection. No scleral icterus. Ear, nose, mouth, throat: Grossly normal inspection. Normal voice, handling secretions normally. No significant posterior oropharynx erythema.No hemotympanum bilaterally. Neck: Trachea midline. No nuchal rigidity. Cardiovascular: Well-perfused distal extremities. Regular rate and rhythm. Respiratory: Nonlabored respiration. Equal breath sounds and clear lungs. Gastrointestinal: Nondistended abdomen. Soft nontender. Musculoskeletal: No significant lower extremity pitting edema. Moving all 4 extremities spontaneously. Skin: Normal for age and race, grossly normal temperature and turgor. No acute rash. Neurologic: Alert and appropriate, no apparent acute deficits. GCS 15. Cranial nerves II through XII intact grossly. No dysmetria. No dysdiadochokinesia. 5 out of 5 bilateral upper and lower extremity strength. Psychiatric: Mood and manner are appropriate. Grooming and personal hygiene are appropriate. Related Data Home Medications ?Medication ?Instructions ?Recorded ?Confirmed sumatriptan succinate 25 mg tablet See Rx Instructions PO .COMPLEX 03/27/25 04/01/25 #30 tabs Previous Rx's ?Medication ?Instructions ?Recorded sumatriptan succinate 25 mg tablet See Rx Instructions PO .COMPLEX 03/27/25 #30 tabs Allergies Allergy/AdvReac Type Severity Reaction Status Date / Time No Known Allergies Allergy Verified 04/01/25 13:00 General KHADAR: 3 Medical Decision Making Quality:SDOH Health Related Social Needs: Health related social needs housing instability, house d, with risk of homelessness (Z59.811), inadequate housing (Z59.1), food insecurity (Z59.41), material hardship(utilities) (Z59.12), transportation insecurity (Z59.82), problems related to housing/economic circumstances (Z59.89), problems finding work (Z56.9), problems with daily activities (Z73.9), feeling lonely/isolated (Z60.8), education (Z55.6) Health related social needs details Has no transportat ion, unsteady housing, emotionally unsafe living situation and social [place]. PFSH All Active Problems (Updated 04/01/25 @ 14:23 by Nando Jon MD) Headache, unspecified (Acute) Chest pain, unspecified (Acute) Complicated migraine with status migrainosus (Acute) Social History Smoking/Tobacco Use Status: Current every day Tobacco Type: cigarettes Years smoked: 16 Smoking risk assessment performed?: Yes Alcohol Intake: current Alcohol Intake frequency: 0-2 drinks per day Alcohol type: beer Drug use: Daily Substance use type: marijuana and crack/cocaine Housing: other Do you feel safe at home: Yes Do you feel safe in your relationship?: Yes Additional Social history: Lots of arguing, fighting at moms. Has been staying in tent and car on brothers property. Stayed with cousin last night. No actual residence.
[2025-04-01 12:41] VITALS: BP 132/82; PULSE 81; RESP 20; TEMP 36.3; O2SAT 100
[2025-04-01 13:19] VITALS: BP 132/82; PULSE 80; RESP 16; TEMP 36.3; O2SAT 98
--- NOTE | 2025-04-01 13:30 | DI.RAD_ITS ---
Exam(s) XR CHEST 2V PA LATERAL EXAM: XR CHEST 2V PA LATERAL CLINICAL HISTORY: Chest pain TECHNIQUE: 2D digital imaging was performed of the chest. Two images were obtained. PA and lateral views were obtained. COMPARISON: CR,XR XR CHEST 2V PA LATERAL from 11/25/2023 CR XR CHEST 2V PA LATERAL from 03/27/2025 FINDINGS: MEDIASTINUM: Normal. HEART: Normal. PULMONARY VASCULATURE: Normal. LUNGS: Clear. PLEURAL SPACE: No pleural effusion or pneumothorax. BONE:Within normal limits for the patient's age. OTHER FINDINGS:Normal. IMPRESSION: No acute pulmonary findings. DATA REPOSITORY: RADIATION DOSE DELIVERED:
--- NOTE | 2025-04-01 13:30 | RT.EKG_ITS ---
APPROVED REPORT Exam: Resting ECG Reason for Exam: Chest pain Patient Location: E HR:78 bpm ECG Measurements Heart Rate 78 AXIS AZ 131 P 20 QRSd 103 QRS 58 QT 369 T 14 QTc 420 Conclusion Sinus rhythm...normal P axis, V-rate 60- 99 No Occlusion AR
--- NOTE | 2025-04-01 14:32 | ED.PROG_ITS ---
Date of service: 04/01/25 Time of Service: 14:32 Medical Decision Making In brief, this is a 34-year-old male patient with a past medical history of migraine, who is presenting for reevaluation of ongoing headache symptoms with aura, pains in his chest and back of his head. At the time that I took over this patient's care, he has had an EKG that showed a normal sinus rhythm without evidence of ischemia, interval abnormality, or ectopy. He was awaiting laboratory workup to include CBC, CMP, magnesium, and troponin. He had a chest x-ray performed that did not show any abnormalities which might account for his chest pain. He has received Tylenol and Toradol for initial symptomatic management of his pain. - I independently interpreted the laboratory studies, which show no significant leukocytosis, anemia, or thrombocytopenia. The chemistry panel is without evidence of electrolyte abnormality, kidney dysfunction, or liver injury. TSH is within normal limits, CK is low, troponin is negative and given the duration of symptoms and the patient's lack of concerning medical risk factors, I do not see that he requires repeat levels at this time. He did report that his headaches continue to be a 3 out of 10, and I did provide him with a dose of his sumatriptan as he has not been able to take it yet today. I had an extended conversation with the patient regarding his symptoms, which may in fact be due to his migraine with aura. Given his reassuring evaluation in the emergency department today I do not see any indication of comorbid cardiac ischemia, and feel that the patient would benefit from ongoing outpatient management and diagnostic clarity at the neurology clinic. I did place the referral as it is unclear to me if this patient actually has one, he states that he had a referral to care management and was contacted for insurance establishment but he did not go to that visit. 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 I ensured that the patient had a primary care provider, and he understands that he needs to contact them to schedule a follow-up appointment. He mentioned that he is concerned about his dentition, I evaluated his teeth and do note some dental caries on the lower molars, no evidence for infection or apical abscess. He is concerned for allergies to mold and water and I recommended allergy testing be coordinated through his primary care provider. At this time, the patient has had a full medical evaluation and is safe for discharge to home. They are hemodynamically stable, ambulatory, and tolerating PO. They are understanding of the follow-up plan and return precautions. They left our facility without incident. Wanda Bauer MD Medical Records Medical records reviewed: Yes I reviewed the patient's medical records. Lab Data Lab results reviewed: Yes I reviewed the patient's lab results. Quality:SDOH Health Related Social Needs: Health related social needs housing instability, house d, with risk of homelessness (Z59.811), inadequate housing (Z59.1), food insecurity (Z59.41), material hardship(utilities) (Z59.12), transportation insecurity (Z59.82), problems related to housing/economic circumstances (Z59.89), problems finding work (Z56.9), problems with daily activities (Z73.9), feeling lonely/isolated (Z60.8), education (Z55.6) Health related social needs details Has no transportat ion, unsteady housing, emotionally unsafe living situation and social port [place]. Discharge Plan Disposition Patient Disposition: Home Discharge Details Clinical Impression: Chest pain, unspecified, Headache, unspecified Primary Care Provider: Nazario Lee ED Provider: Wanda Bauer [place] Meds and New Rx's Prescriptions: No Action sumatriptan succinate 25 mg tablet See Rx Instructions .ROUTE .COMPLEX Qty: 30 0RF Rx Instructions: take 1 tab at onset of headache; if no relief may repeat 1 tab after at least 2 hrs; max = 4 tabs/24 hr Discharge Instructions Instructions: Headache, Adult ED Additional Instructions: You were seen in the emergency department today for evaluation of your ongoing headache with numbness and tingling of your lips and fingers, as well as some pain in your chest. In our department you had a full physical examination performed, had an EKG that did not show sign of heart attack or other heart abnormalities. You had laboratory studies that did not show sign of infection, electrolyte abnormalities, kidney injury, damage to your heart, or problems with your thyroid. You had a chest x-ray that was normal. Unfortunately, we are sometimes unable to determine the exact cause of symptoms in the emergency department, but we were able to rule out several emergency causes of symptoms like yours. I believe that the next step in workup and management should be with a specialist, and we have placed a referral to a neurology clinic where you should discuss your headaches, tingling, and any other symptoms that develop. Additionally, you should continue to take all medications as prescribed. The sumatriptan, Tylenol, and ibuprofen are all excellent medications which are safe to take together in the event of a headache. Please continue to use migraine precautions like avoidance of loud environments, bright lights, and good hydration. You need to call your primary care provider and make an appointment because this person is the one who will be able to manage some of your long-term concerns like allergy testing, etc. Thank you for allowing us to be part of your care.
[2025-04-01 14:34] LABS: Abs Immature Grans 0.03 10^3/uL (0.0-0.06); Absolute Basophil Count 0.06 10^3/uL (0.0-0.2); Absolute Eosinophil Count 0.11 10^3/uL (0.0-0.7); Absolute Lymphocyte Count 2.03 10^3/uL (1.2-3.4); Absolute Monocyte Count 0.67 10^3/uL (0.1-0.8); Absolute Neutrophil Count 7.65 10^3/uL (1.2-6.7); Basophils % 0.6 %; HCT 47.3 % (40.0-50.0); HGB 16.5 g/dL (13.5-17.5); Immature Grans % 0.3 %; Lymphocytes % 19.2 %; MCH 31.3 pg (27.0-33.0); MCHC 34.9 % (32.0-36.0); MCV 90 fL (80-95); MPV 10.6 fL (8.0-11.0); Monocytes % 6.4 %; Neutrophils % 72.5 %; Platelet Count 240 10^3/uL (130-400); RBC 5.28 10^6/uL (4.36-5.78); RDW 12.6 % (11.8-14.1); RDW-SD 41.2 fL; WBC 10.55 10^3/uL (4.4-10.8)
[2025-04-01 15:03] LABS: Anion Gap 7.6 mmol/L (3-11); BUN 9 mg/dL (7-18); CO2 27.4 mmol/L (21.0-32.0); CREATININE 0.8 mg/dL (0.70-1.30); Calcium 9.7 mg/dL (8.5-10.1); Chloride 102 mmol/L (98-107); Creatine Kinase 57 U/L (39-308); Glucose 99 mg/dL (74-106); Magnesium 2.1 mg/dL (1.8-2.4); Potassium 3.9 mmol/L (3.5-5.1); Sodium 137 mmol/L (136-145); Troponin I 4 ng/L (<or=76)
[2025-04-01] MEDS: Normal Saline 1,000 ML 1000 ML IV (15:19)
[2025-04-01] MEDS: Ketorolac 15 MG/ML VIAL IVP (15:20)
[2025-04-01] MEDS: Acetaminophen 500 MG TAB 1000 MG PO (15:21)
[2025-04-01] MEDS: SUMAtriptan 25 MG TAB PO (16:12)
[2025-04-01 16:16] VITALS: BP 142/87; PULSE 85; RESP 16; TEMP 36.4; O2SAT 98
--- NOTE | 2025-04-02 16:02 | NUR.NOTE ---
Nursing Note:Pt called because he lost his discharge papers from his visit on 03/27 and needed the numbers for neurology and Nazario Lee from that form. I gave them both numbers and he intends to call them tomorrow to follow up.
== END 2025-04-01 16:18 | disposition home or self-care (01) ==
PROVIDERS: Emergency Medicine; Emergency Provider Emergency Medicine; PCP Nurse Practitioner Family
DX: R51.9 Headache, unspecified (principal); R07.9 Chest pain, unspecified; F17.210 Nicotine dependence, cigarettes, uncomplicated
CPT/HCPCS: 00123; 36415; 80048; 82550; 93005; 96374; 99284; 71046; 83735; 84443; 84484; 85025; 93010; J1885